=== PATIENT | female | born 1935 | race Caucasian/White ===

== ENCOUNTER 2022-05-17 13:23 | Outpatient (CLI) | payer MEDICARE, OTHER | END 2022-05-17 13:24 | disposition home or self-care (01) | LOC: RAD 13:23 | PROVIDERS: ATTEND Specialist | DX: I69.891 Dysphagia following other cerebrovascular disease (principal); K21.9 Gastro-esophageal reflux disease without esophagitis; J69.0 Pneumonitis due to inhalation of food and vomit; R13.13 Dysphagia, pharyngeal phase; R63.30 Feeding difficulties, unspecified | CPT/HCPCS: 74230 ==